=== PATIENT | female | born 1965 | race Caucasian/White ===

== ENCOUNTER → 2016-12-26 | Outpatient (CLI) | payer BC ==
[2016-06-27 09:26] VITALS: BP 119/65
[~2016-12-26] MED LIST: ATEN50TA PO; BUPR100T7 PO; COLE1TAB PO; CONTRAST GIVEN MC PRN; ESOM40CA PO; FLUO20CA16 PO; IOHEXOL 240 MG/ML 50ML VIAL. PO ONE; IOHEXOL 300 MG/ML 100ML VIAL. IV ONE; VENL75CA PO
--- NOTE | 2016-12-26 14:46 | KCIC ---
CT abdomen and pelvis with contrast History: Epigastric pain, nonhealing gastric ulcer since April 2016, H. pylori Technique: After the administration of oral and intravenous contrast, CT imaging was performed of the abdomen and pelvis. Multiplanar images are reviewed. Exposure: One or more of the following individualized dose reduction techniques were utilized for this examination: 1. Automated exposure control 2. Adjustment of the mA and/or kV according to patient size 3. Use of iterative reconstruction technique. Contrast: 100 cc Omnipaque 300 Comparison: None available at this time Findings: There is no significant abnormality of the visualized lung bases. There is no significant abnormality of the pancreas. There is a 1.7 cm hypodense lesion at the left lobe of the liver, density measurements of 34 Hounsfield units. There are 2 hypodense foci of the spleen. One of these measures up to 1.1 cm with density measurements suggestive of a cyst, the other up to 1.1 cm with density measurements of 37 Hounsfield units. Both kidneys enhance without hydronephrosis. There has been cholecystectomy. Segments of the proximal small bowel are somewhat prominent up to 3.3 cm in caliber although not associated with significant wall thickening or adjacent inflammatory-type change. There is no evidence of bowel obstruction as there is oral contrast in more distal normal caliber small bowel. There is no significant inflammatory change adjacent to the bowel. There is no free fluid or free air. The colon is not opacified with contrast during the exam. Ascending colonic wall thickening cannot be excluded although findings could be due to nondistention and peristalsis. Normal appendix is visualized. Uterus is surgically absent. There is degenerative disc disease and vacuum phenomenon at L5-S1 and T11-12. There is grade 1 anterior spondylolisthesis at L4-5 at which there is facet degenerative change, likely at least mild spinal stenosis and mild neural foramina compromise bilaterally at this level. There is also suspected moderate narrowing of the right L5-S1 neural foramen. Impression: 1. There is indeterminate hypodense lesion of the left lobe of the liver. There is also indeterminate hypodense lesion of the spleen, adjacent cyst also present. MR characterization may be beneficial. 2. Ascending colonic wall thickening cannot be excluded on this exam although no adjacent inflammatory type change. Otherwise no significant acute abnormality is identified. Electronically signed by: Pedro Hollins MD (12/26/2016 2:43 PM)
== END | disposition home or self-care (01) ==
LOC: KCIC CT 12:01
PROVIDERS: ATTEND Internal Medicine Gastroenterology
DX: R10.13 Epigastric pain (principal); K25.9 Gastric ulcer, unspecified as acute or chronic, without hemorrhage or perforation
CPT/HCPCS: 74177; Q9966; Q9967

== ENCOUNTER 2017-03-07 17:28 | Emergency (ER) | payer BC ==
[~2017-03-07] VITALS: Ht 162.6 cm; Wt 95.3 kg
[~2017-03-07 17:28] MED LIST changes: -CONTRAST GIVEN MC PRN; -IOHEXOL 240 MG/ML 50ML VIAL. PO ONE; -IOHEXOL 300 MG/ML 100ML VIAL. IV ONE
[2017-03-07 17:54] VITALS: BP 138/85
--- NOTE | 2017-03-07 18:10 | PHYS DOC ---
Past Medical History Past Medical History: Arrhythmia, Depression, GERD Past Surgical History: Cholecystectomy, , Hysterectomy Alcohol Use: None Drug Use: None Adult General Chief Complaint Chief Complaint: ALLERGIC REACTION HPI HPI Patient is a 52 year old female presents emergency department stating that she has been taking Zantac for the last 4 days. She states developed a rash which is very itching and irritated. She states throughout her body and is getting worse. Patient states that she had been taken off her Nexium for an H. pylori testing. She states she is supposed to be off her Nexium for 2 weeks however she was started on Zantac. Patient denies any shortness of air difficulty breathing. She denies any nausea vomiting. She has taken Benadryl 50 mg every 4 hours in which has not provided her much relief. [] Review of Systems Review of Systems Constitutional: Denies fever or chills [] Eyes: Denies change in visual acuity, redness, or eye pain [] HENT: Denies nasal congestion or sore throat [] Respiratory: Denies cough or shortness of breath [] Cardiovascular: No additional information not addressed in HPI [] GI: Denies abdominal pain, nausea, vomiting, bloody stools or diarrhea [] : Denies dysuria or hematuria [] Musculoskeletal: Denies back pain or joint pain [] Integument: rash denies skin lesions [] Neurologic: Denies headache, focal weakness or sensory changes [] Endocrine: Denies polyuria or polydipsia [] Current Medications Current Medications Current Medications Medications (Trade) Dose Ordered Sig/Rangel Start Time Stop Time Status Last Admin Dose Admin Hydroxyzine HCl (Atarax) 10 mg 1X ONCE 03/07/17 18:15 03/07/17 18:16 DC 03/07/17 18:19 10 MG Methylprednisolone Sodium Succinate (SOLU-Medrol 125MG VIAL) 125 mg 1X ONCE 03/07/17 18:15 03/07/17 18:16 DC 03/07/17 18:19 125 MG Allergies Allergies Allergies Coded Allergies Type Severity Reaction Last Updated Verified Penicillins Allergy Intermediate rash and swelling 06/27/16 Yes clindamycin Allergy Intermediate hives 06/27/16 Yes Physical Exam Physical Exam Constitutional: Well developed, well nourished, no acute distress, non-toxic appearance. [] HENT: Normocephalic, atraumatic, bilateral external ears normal, oropharynx moist, no oral exudates, nose normal. [] Eyes: PERRLA, EOMI, conjunctiva normal, no discharge. [] Neck: Normal range of motion, no tenderness, supple, no stridor. [] Cardiovascular:Heart rate regular rhythm, no murmur [] Lungs & Thorax: Bilateral breath sounds clear to auscultation [] Skin: Warm, dry, no erythema, rash noted throughout the body, areas appear to red raised papules with no drainage or discharge noted. Back: No tenderness Extremities: No tenderness, no cyanosis, no clubbing, ROM intact, no edema. [] Neurologic: Alert and oriented X 3, normal motor function, normal sensory function, no focal deficits noted. [] Psychologic: Affect normal, judgement normal, mood normal. [] Current Patient Data Vital Signs Vital Signs Date Time Temp Pulse Resp B/P (MAP) Pulse Ox O2 Delivery O2 Flow Rate FiO2 03/07/17 17:54 99.4 91 18 96 Room Air 99.4 EKG EKG [] Radiology/Procedures Radiology/Procedures [] Course & Med Decision Making Course & Med Decision Making Pertinent Labs and Imaging studies reviewed. (See chart for details) Patient will be provided with Atarax here the emergency department as well as Solu-Medrol. She'll be monitored for approximately 30-45 minutes. Patient was instructed to avoid taking Zantac in the future as well as Pepcid. Patient was recommended to call her primary care physician or your physician who had placed her on Zantac For further recommendations. Patient states that she is feeling much better and is rated home. She'll be provided with prednisone prescription recommended that she continue to use the Benadryl as prescribed by [employer]. Signs and symptoms to return back to emergency department as been provided. Patient agrees with discharge instructions, treatment regimens and follow-up recommendations. All questions and concerns been answered patient's bedside. [] Dragon Disclaimer Dragon Disclaimer This electronic medical record was generated, in whole or in part, using a voice recognition dictation system. Departure Departure Impression: Primary Impression: Allergic reaction to drug Disposition: HOME, SELF-CARE Condition: STABLE Referrals: ADINA HEATH DO (PCP) Patient Instructions: Allergies, Generic Additional Instructions: Activity as tolerated Continue with the bendaryl 25 mg every 6 hours with food. This medication will cause drowsiness do not take if you need to be alert and oriented Medication as prescribed Do not take pepcid or zantac in the future Followup with your primary care provider Thursday Return to emergency department as needed for signs and symptoms that become worse. Scripts Prednisone (PREDNISONE) 20 Mg Tablet 40 MG PO DAILY for 7 Days, #14 TAB Prov: MARIAJOSE MADRID APRN 03/07/17 Problem Qualifiers Primary Impression: Allergic reaction to drug Encounter type: initial encounter Qualified Codes: T78.40XA - Allergy, unspecified, initial encounter MARIAJOSE MADRID APRN Mar 07, 2017 18:10
[2017-03-07] MEDS ORDERED: hydrOXYzine 10 MG TABLET PO ONE (18:15)
[2017-03-07] MEDS ORDERED: methylPREDNISolone SOD SUCC PF 125 MG/2 ML VIAL. IM ONE (18:15)
[2017-03-07] MEDS ORDERED: PRED20TA PO (18:29)
== END 2017-03-07 18:50 | disposition home or self-care (01) ==
LOC: ER 17:28
DX: T47.0X5A Adverse effect of histamine H2-receptor blockers, initial encounter (principal); K21.9 Gastro-esophageal reflux disease without esophagitis; Z90.710 Acquired absence of both cervix and uterus; Z90.49 Acquired absence of other specified parts of digestive tract; Z88.0 Allergy status to penicillin; Z88.1 Allergy status to other antibiotic agents; Y93.89 Activity, other specified; Y99.8 Other external cause status; Y92.89 Other specified places as the place of occurrence of the external cause
CPT/HCPCS: 96372; 99283; J2930